=== PATIENT | female | born 1965 | race Caucasian/White ===

== ENCOUNTER 2019-03-22 10:04 | Emergency (ER) | payer MEDICAID ==
[2019-03-22 10:09] VITALS: BMI 25.3
[2019-03-22] MEDS ORDERED: SKELAXIN800 MG PO (10:11)
[2019-03-22] MEDS ORDERED: OMEPRAZOLE20 M1 PO (10:11)
[2019-03-22] MEDS ORDERED: CARAFATE1 G PO (10:11)
[2019-03-22] MEDS ORDERED: ZOFRAN4 MG PO (10:11)
[2019-03-22] MEDS ORDERED: LEXAPRO10 MG PO (10:12)
[2019-03-22] MEDS ORDERED: MOBIC7.5 MG PO (10:12)
[2019-03-22] MEDS ORDERED: KLONOPIN0.5 MG PO (10:12)
[2019-03-22 10:45] LABS: APPEARANCE CLEAR (CLEAR); BILIRUBIN NEGATIVE (NEGATIVE); COLOR YELLOW (YELLOW); GLUCOSE NEGATIVE (NEGATIVE); KETONE NEGATIVE (NEGATIVE); NITRITE NEGATIVE (NEGATIVE); PROTEIN NEGATIVE (NEGATIVE); SPECIFIC GRAVITY 1.025 (1.005-1.020); UROBILINOGEN NORMAL (NORMAL)
[2019-03-22 10:46] LABS: BASOPHILS 0.6 % (0-2); EOSINOPHILS 4.1 % (0-7); HEMATOCRIT 41.3 % (36.0-48.0); IMMATURE GRANULOCYTES 0.3 % (0-5); LYMPHOCYTES 29.5 % (15-50); MCH 30.1 pg (26.0-34.0); MCHC 33.9 g/dL (31.0-37.0); MCV 88.8 fL (80.0-100.0); MEAN PLATELET VOLUME 10.9 fL (7.4-10.4); MONOCYTES 10.2 % (2-11); NEUTROPHILS 55.3 % (40-80); PLATELET COUNT 187 10x3/uL (130-400); RBC 4.65 10x6/uL (4.00-5.40); RDW 13.2 % (11.5-14.5); WBC 6.9 10x3/uL (4.8-10.8)
[2019-03-22 11:03] LABS: ALBUMIN 3.2 g/dL (3.4-5.0); ANION GAP 10.1 mmol/L (8-16); BILIRUBIN - TOTAL 0.3 mg/dL (0.2-1.3); CALCIUM 8.5 mg/dL (8.5-10.1); CARBON DIOXIDE 29.4 mmol/L (21.0-32.0); POTASSIUM - SERUM 4.5 mmol/L (3.5-5.1); PROTEIN - SERUM 6.7 g/dL (6.4-8.2)
[2019-03-22] MEDS ORDERED: FLAGYL500 MG PO (12:47)
[2019-03-22] MEDS ORDERED: LOMOTIL 2.5-0.1 EAC1 PO (12:47)
[2019-03-22] MEDS ORDERED: CIPRO500 MG PO (12:47)
[2019-03-22 12:58] VITALS: BP 121/65
== END 2019-03-22 13:07 | disposition home or self-care (01) ==
LOC: D.ER 10:04
PROVIDERS: Family Medicine
DX: K29.70 Gastritis, unspecified, without bleeding (principal)

== ENCOUNTER 2019-03-29 10:19 | Observation (INO) | payer MEDICAID ==
[~2019-03-29 10:19] MED LIST: CARAFATE1 G PO; CIPRO500 MG PO; FLAGYL500 MG PO; KLONOPIN0.5 MG PO; LEXAPRO10 MG PO; LOMOTIL 2.5-0.1 EAC1 PO; MOBIC7.5 MG PO; OMEPRAZOLE20 M1 PO; SKELAXIN800 MG PO; ZOFRAN4 MG PO
[2019-03-29 10:59] LABS: BASOPHILS 0.4 % (0-2); EOSINOPHILS 4.4 % (0-7); HEMATOCRIT 40.7 % (36.0-48.0); IMMATURE GRANULOCYTES 0.6 % (0-5); LYMPHOCYTES 38.7 % (15-50); MCH 30.4 pg (26.0-34.0); MCHC 34.4 g/dL (31.0-37.0); MCV 88.3 fL (80.0-100.0); MEAN PLATELET VOLUME 11.5 fL (7.4-10.4); MONOCYTES 7.8 % (2-11); NEUTROPHILS 48.1 % (40-80); PLATELET COUNT 202 10x3/uL (130-400); RBC 4.61 10x6/uL (4.00-5.40); RDW 13.3 % (11.5-14.5)
[2019-03-29 11:07] LABS: ALBUMIN 3.2 g/dL (3.4-5.0); ANION GAP 8.9 mmol/L (8-16); BILIRUBIN - TOTAL 0.3 mg/dL (0.2-1.3); CALCIUM 8.5 mg/dL (8.5-10.1); CARBON DIOXIDE 30.2 mmol/L (21.0-32.0); CREATININE - SERUM 0.9 mg/dL (0.6-1.3); POTASSIUM - SERUM 4.1 mmol/L (3.5-5.1); PROTEIN - SERUM 6.5 g/dL (6.4-8.2)
[2019-03-29 11:10] LABS: TROPONIN-I 0.018 ng/mL (0.000-0.060)
[2019-03-29 11:20] LABS: APPEARANCE CLEAR (CLEAR); BILIRUBIN NEGATIVE (NEGATIVE); COLOR STRAW (YELLOW); GLUCOSE NEGATIVE (NEGATIVE); KETONE NEGATIVE (NEGATIVE); NITRITE NEGATIVE (NEGATIVE); PROTEIN NEGATIVE (NEGATIVE); SPECIFIC GRAVITY 1.005 (1.005-1.020); UROBILINOGEN NORMAL (NORMAL)
[2019-03-29 12:41] LABS: CKMB 1.5 U/L (0.0-3.6); CREATINE KINASE 83 UL (21-215)
[2019-03-29 15:23] VITALS: BMI 25.6
[2019-03-29 16:07] VITALS: BP 107/60
[2019-03-29 16:40] LABS: ERYTHROCYTE SEDIMENTATION RATE 6 mm/hr (0-30)
[2019-03-29 16:56] LABS: CKMB 1.5 U/L (0.0-3.6); CREATINE KINASE 72 UL (21-215); TROPONIN-I 0.024 ng/mL (0.000-0.060)
[2019-03-29] MEDS ORDERED: MOBIC7.5 MG PO (17:45)
[2019-03-29 19:55] VITALS: BP 107/63
[2019-03-29 20:03] LABS: HCG URINE NEGATIVE (NEGATIVE)
[2019-03-29 20:07] LABS: UDS - AMPHET NEGATIVE QUAL (NEGATIVE); UDS - BARB NEGATIVE QUAL (NEGATIVE); UDS - BENZO NEGATIVE QUAL (NEGATIVE); UDS - COCAINE NEGATIVE QUAL (NEGATIVE); UDS - OPIATE NEGATIVE QUAL (NEGATIVE); UDS - PCP NEGATIVE QUAL (NEGATIVE); UDS - THC NEGATIVE QUAL (NEGATIVE)
--- NOTE | 2019-03-29 20:38 | NUR ---
EVENING ROUNDS COMPLETED. REPORT RECEIVED. PT SITTING UP IN BED WITH EYES OPEN, RR EVEN AND UNLABORED. BED IN LOW POSITION. NO S/S OF DISTRESS NOTED. ORDERED ECG PERFORMED AND PLACED ON CHART. PT STATES SHE WAS TOLD BY HER PCP THAT SHE "HAD A TEN THOUSAND DOLLAR DYE TEST AND THEY TOLD HER SHE HAD 3 LEAKY VALVES". PT DENIES ANY FURTHER NEEDS AT THIS TIME. CALL LIGHT IN REACH. WILL CTM.
[2019-03-29 22:21] LABS: CKMB 1.5 U/L (0.0-3.6); CREATINE KINASE 78 UL (21-215); TROPONIN-I 0.023 ng/mL (0.000-0.060)
[2019-03-29 23:49] VITALS: BP 100/52
[2019-03-30 02:09] LABS: BASOPHILS 0.5 % (0-2); EOSINOPHILS 3.9 % (0-7); HEMATOCRIT 36.2 % (36.0-48.0); HEMOGLOBIN 12.1 g/dL (12-16); IMMATURE GRANULOCYTES 0.2 % (0-5); LYMPHOCYTES 36.8 % (15-50); MCH 29.7 pg (26.0-34.0); MCHC 33.4 g/dL (31.0-37.0); MCV 88.7 fL (80.0-100.0); MEAN PLATELET VOLUME 11.2 fL (7.4-10.4); MONOCYTES 8.5 % (2-11); NEUTROPHILS 50.1 % (40-80); RBC 4.08 10x6/uL (4.00-5.40); RDW 13.5 % (11.5-14.5); WBC 5.6 10x3/uL (4.8-10.8)
[2019-03-30 02:12] LABS: PLATELET COUNT 160 10x3/uL (130-400)
[2019-03-30 02:29] LABS: ALBUMIN 2.6 g/dL (3.4-5.0); ALKALINE PHOSPHATASE 55 U/L (46-116); ALT (SGPT) 21 U/L (10-68); BILIRUBIN - TOTAL 0.22 mg/dL (0.2-1.3); CALC OSMOLALITY 279 mosm/kg (275-300); CALCIUM 7.9 mg/dL (8.5-10.1); CARBON DIOXIDE 28.7 mmol/L (21.0-32.0); CHLORIDE - SERUM 109 mmol/L (98-107); CKMB 0.9 U/L (0.0-3.6); CREATINE KINASE 59 UL (21-215); CREATININE - SERUM 0.8 mg/dL (0.6-1.3); GLUCOSE 95 mg/dL (74-106); POTASSIUM - SERUM 3.8 mmol/L (3.5-5.1); PROTEIN - SERUM 5.5 g/dL (6.4-8.2); SODIUM 141 mmol/L (136-145); TROPONIN-I 0.017 ng/mL (0.000-0.060); UREA NITROGEN 9 mg/dL (7-18); eGFR NON AFRICAN AMERICAN 79 mL/min (90-120)
--- NOTE | 2019-03-30 03:10 | NUR ---
I have reviewed this patient and I concur with the Shift Assessment completed by the Licensed Practical Nurse today this shift.
[2019-03-30 03:36] VITALS: BP 107/59
--- NOTE | 2019-03-30 06:40 | NUR ---
PT SITTING UP IN BED WITH EYES OPEN, RR EVEN AND UNLABORED. PT HEART RATE DROPPED INTO HIGH THIRTIES DURING THE NIGHT, WILL NOTIFY ONCOMING NURSE.
--- NOTE | 2019-03-30 07:40 | NUR ---
A/A/OX4. DENIES ANY PAIN, DISCOMFORT OR NAUSEA. STATES SHE IS WANTING SOME REAL FOOD INSTEAD OF THE LIQUIDS AND WANTS TO BE DISCHARGED TODAY. NO REQUESTS VOICED AND ASSESSMENT COMPLETED. WILL CONTINUE POC.
[2019-03-30 07:59] VITALS: BP 91/60
[2019-03-30 11:57] VITALS: BP 109/49
--- NOTE | 2019-03-30 15:58 | NUR ---
DISCHARGE INSTRUCTIONS REVIEWED WITH PT AND VERBALIZES UNDERSTANDING WITH NO QUESTIONS. SL REMOVED WITH CATH TIP INTACT. LEFT FLOOR AMBLATORY AT HER REQUEST WITH PERSONAL BELONGINGS AND LEFT FACILITY VIA PRIVATE VEHICLE WITH HER BOYFRIEND.
--- NOTE | 2019-03-31 07:56 | MORECARE ---
CASE MANAGEMENT DISCHARGE SUMMARY PATIENT: ALANA BAILEY UNIT: [id number] ADM DATE: 03/29/19 AGE: 53 : 61 SEX: F ROOM/BED: D.2100 AUTHOR: REESE HANKS PHYSICIAN: REFERRING PHYSICIAN: ZAIRA JIMÉNEZ MD DATE OF SERVICE: 03/31/19 Discharge Plan Patient Name: ALANA BAILEY Facility: [facility]:[place] : 1965 Planned Disposition: Home Anticipated Discharge Date: 03/30/19 Discharge Date: 03/30/2019 Expected LOS: 1 Initial Reviewer: [email or web address] Initial Review Date: 03/31/2019 Generated: 03/31/19 8:56 am Patient Name: ALANA BAILEY Page [id number] at 0756 All edits/amendments must be made on the electronic document DICTATION DATE: 03/31/19 0755 FARM CONTRACTOR: [place] 03/31/19 0755 RPT#: [id number] DC DATE:03/30/19 STATUS: DIS IN [facility] [address] [place] [address] END OF REPORT
--- NOTE | 2019-03-31 09:55 | CN ---
PATIENT NAME:ALANA BAILEY MEDICAL RECORD: [id number] : 61 LOCATION:D. D.2102 ADMIT DATE: 03/29/19 ACCOUNT: [id number] CONSULTING PHYSICIAN: ALEXIS NOLAND MD REFERRING PHYSICIAN: ZAIRA JIMÉNEZ MD DATE OF CONSULTATION: 03/30/2019 HISTORY OF PRESENT ILLNESS: A 53-year-old lady with questionable cardiovascular history of "leaky heart valve." Admitted with abdominal pain and weakness with history of nausea, vomiting, and diarrhea. She has been tried on antibiotics and hydration. She is noted to be bradycardic at the time of nausea and diarrhea. There is sinus mechanism with normal NV interval and normal QRS duration. Suspect vagal reflex. We are asked to see her concerning her cardiovascular status. PAST MEDICAL HISTORY: Includes; 1. History of questionable valve pathology. 2. Osteoarthritis. MEDICATIONS: Include Carafate 1 gram a.c. and at bedtime, omeprazole 20 daily, Mobic 7.5 daily, and Lexapro 10 daily. ALLERGIES: None known. SOCIAL HISTORY: Smokes about a pack a day. Nondrinker. No set exercise program. Stays active. She takes care of all her ADLs. REVIEW OF SYSTEMS: The patient reports easy bruising but reports no swollen glands. The patient reports no fever, no night sweats, no significant weight gain, no significant weight loss. No significant exercise tolerance. The patient reports no dry eyes, no irritation, no vision change. Patient reports no difficulty hearing and no ear pain. Patient reports no frequent nose bleeds or nose and sinus problems. Patient reports on arm pain on exertion. No shortness of breath while lying down. No history of heart murmur. Patient reports no cough, no wheezing or coughing up blood. Patient reports no abdominal pain, no vomiting. Normal appetite. No diarrhea and not vomiting blood. No nausea and no constipation. Patient reports no incontinence. No difficulty urinating. No hematuria. No increased frequency. Patient reports no muscle aches. No weakness, no arthralgias, no back pain. No swelling of the extremities. Patient reports no abnormal mole, no jaundice, no rashes. Reports no loss of consciousness. No weakness and no numbness. No seizures, dizziness, or headaches. The patient reports no depression, no sleep disturbance, feeling safe in a relationship and no alcohol abuse. Patient reports on fatigue. Reports no runny nose or sinus pressure. No itching, no hives, and no frequent sneezing. PHYSICAL EXAMINATION: GENERAL: Pleasant female, appears stated age, in no acute distress. VITAL SIGNS: Blood pressure 109/49. Pulse 87 and regular. HEENT: Normocephalic and atraumatic. NECK: No JVD or bruit. HEART: Regular. LUNGS: Good air excursion. ABDOMEN: Soft and nontender. EXTREMITIES: Pulse 2+. No edema. CONSULT REPORT [id number] ALANA BAILEY DIAGNOSTIC DATA: ECG shows no significant conduction defects. IMPRESSION: Suspect vasovagal episode given current GI distress. I will check echocardiographic study, but no other workup needed from cardiovascular standpoint. Okay to discharge from my standpoint. TRANSINT:[id number] Voice Confirmation ID: [id number] DOCUMENT ID: [id number] ALEXIS NOLAND MD at 0955 CC: [id number] DICTATION DATE: 03/30/19 1311 TYPEWRITER OPERATOR AUTOMATIC: 03/30/19 1513 DIS IN 03/30/19 [id number] [place] [address]
--- NOTE | 2019-04-01 15:37 | EC ---
PATIENT:ALANA BAILEY DATE OF SERVICE: 03/29/19 SEX: F MEDICAL RECORD: [id number] DATE OF : [birth year] LOCATION:D.M2 D.210 AGE OF PATIENT: 53 ADMISSION DATE: 03/29/19 REFERRING PHYSICIAN: INTERPRETING PHYSICIAN: ALEXIS NOLAND MD ECHOCARDIOGRAM REPORT ECHO CHARGES 4 ECHO COMPLETE Date: 03/30/19 CLINICAL DIAGNOSIS: BRADYCARDIA ECHOCARDIOGRAPHIC MEASUREMENTS (adult normal given) AC root (d.<3.7cm) 2.4 cm LV Septum d (<1.2 cm> 1.3 cm Valve Excursion 1.7 cm LV Septum (systole) 1.6 cm Left Atria (s.<4.0cm> 3.4 cm LVPW d(<1.2cm) 1.1 cm RV (d.<2.3cm) 3.0 cm LVPW (sytole) 1.8 cm LV diastole(<5.6CM) 4.9 cm MV E-F(>70mm/sec) cm LV systole 2.6 cm LVOT Diameter 1.9 cm MV exc.(>10mm) cm Est.ejection fraction (50-75%) % DOPPLER: LVIT cm/sec A 45.0 cm/sec E 83.0 cm/sec LA cm/sec RVSP 33.2 mmHg LVOT 116 cm/sec AOP1/2T m/s Asc. Ao 160 cm/sec RVOT 64.0 cm/sec RA cm/sec PA 94.0 cm/sec AV Gradient Peak 10.2 mmHg AV Mean 5.2 mmHg AV Area 1.9 cm MV Gradient Peak 4.0 mmHg MV Mean 1.3 mmHg MV Area cm COMMENTS: Draw Bench Operator: 1 MARIELLE MONAEOE Armature Winder Repair Helper: 3 Dr. Medina TAPE# PACS Pericardial Effusion N DATE OF SERVICE: Adequate 2D, Color Flow, Spectral Doppler, and M-Mode Borderline LVH. LV internal dimension is normal. Wall motion is normal. EF is greater than or equal to 55%. Aortic valve is tricuspid. No evidence of stenosis by Doppler interrogation. Left atrium is normal at 3.4 cm. Mitral valve shows no prolapse. Trace to mild MR. Right-sided chambers are grossly normal. Mild TR. ECHOCARDIOGRAM REPORT [id number] ALANA BAILEY TRANSINT:[id number] Voice Confirmation ID: [id number] DOCUMENT ID: [id number] ALEXIS NOLAND MD at 1537 CC: [id number] DICTATION DATE: 03/31/1953 DIALER: 04/01/19 0023 DIS IN 03/30/19 [facility] [address] [place] [address]
== END 2019-03-30 16:00 | disposition home or self-care (01) ==
LOC: D.ER 10:19 → D.EDHOLD 13:44 → OBSVTIME 13:51 → D.M2 14:19
PROVIDERS: Family Medicine; ADMIT Internal Medicine Nephrology; ATTEND Internal Medicine Nephrology
DX: R00.1 Bradycardia, unspecified (principal); K21.9 Gastro-esophageal reflux disease without esophagitis; F17.213 Nicotine dependence, cigarettes, with withdrawal; F41.9 Anxiety disorder, unspecified